=== PATIENT | male | born 1985 | race Caucasian/White ===

== ENCOUNTER 2021-03-05 11:45 | Emergency (ER) | payer OTHER ==
[2021-03-05 13:42] LABS: HEMOGLOBIN 16.6 gm/dl (14.0-17.5); RED BLOOD COUNT 5.86 M/UL (4.20-5.50); WHITE BLOOD COUNT 10.1 K/UL (4.5-11.0)
[2021-03-05 14:00] LABS: BUN/CREATININE RATIO 14 (0-10)
== END 2021-03-05 14:57 | disposition home or self-care (01) ==
LOC: ER1 11:45
PROVIDERS: Nurse Practitioner
DX: U07.1 COVID-19 (principal); R53.1 Weakness
CPT/HCPCS: 0240U; 36600; 70450; 71045; 80048; 82550; 82553; 82803; 83605; 83874; 84484; 85025; 85652; 86140; 87040; 93005; 99285